=== PATIENT | male | born 1970 ===

== ENCOUNTER 2024-08-14 07:00 | Inpatient (IN) | payer OTHER ==
[~2024-08-14] VITALS: Ht 175.3 cm; Wt 90.7 kg
[~2024-08-14 07:00] MED LIST: AVAPRO75 MG
[2024-08-14] MEDS ORDERED: METFORMIN HCL500 M3 (08:15)
[2024-08-14] MEDS ORDERED: ROSUVASTATIN CA10 MG (08:16)
[2024-08-14] MEDS ORDERED: TOPROL XL50 M1 (08:16)
[2024-08-14] MEDS ORDERED: GLIMEPIRIDE1 M1 (08:16)
[2024-08-14] MEDS ORDERED: METHIMAZOLE 10 MG (08:17)
[2024-08-14] MEDS ORDERED: VITAMIN (08:17)
[2024-08-14] MEDS ORDERED: PROTONIX40 MG (08:18)
[2024-08-14] MEDS ORDERED: IODINE (08:18)
[2024-08-14] MEDS ORDERED: POTASSIUM IODIDE (08:18)
[2024-08-14] MEDS ORDERED: PEPCID 40MG (08:18)
[2024-08-14 08:21] LABS: HEMATOCRIT 38.4 % (39.0-48.0); HEMOGLOBIN 13.1 g/dL (13-16.00); MEAN CELL VOLUME 78.7 fL (80.0-100.00); MEAN CORPUSCULAR HGB CONC 34.3 g/dl (32.0-36.0); PLATELET COUNT 256 K/uL (150-450); RED BLOOD COUNT 4.87 M/uL (4.00-6.00); RED CELL DISTRIBUTION WIDTH 14.5 % (11.5-14.5)
[2024-08-14 08:33] LABS: PH,URINE 5.5 (5.0-8.0); URINE APPEARANCE Clear; URINE BILIRRUBIN Negative (NEGATIVE); URINE BLOOD Negative; URINE COLOR Yellow; URINE GLUCOSE Negative (NEGATIVE); URINE KETONE Negative (NEGATIVE); URINE LEUKOCYTE Negative; URINE NITRATE Negative; URINE PROTEIN Negative (NEGATIVE); URINE UROBILINOGEN 0.2 E.U./dl
[2024-08-14 08:39] LABS: URINE BACTERIA 26.4 uL (0.0-1933)
[2024-08-14 08:51] LABS: INR 1.09; PARTIAL THROMBOPLASTIN TIME 27.2 SECONDS (22.0-34.0); PROTHROMBIN TIME 11.8 SECONDS (9.0-11.5)
[2024-08-14 08:57] LABS: URINE EPITHELIAL CELLS 0.7 uL (0.0-38.8); URINE RBC 1.3 uL (0.0-20.8); URINE WBC 0.7 uL (0.0-23.2)
[2024-08-14 09:39] LABS: BILIRUBIN TOTAL 0.62 mg/dL (0.3-1.2); CALCIUM 9.8 mg/dL (8.5-10.1); CREATININE SERUM 0.9 mg/dL (0.70-1.30); GFR 87.29; GLOBULINA 3.9 G/DL (2.4-3.5); POTASSIUM 4.61 mEq/L (3.5-5.1); TOTAL PROTEIN 7.9 gm/dL (6.4-8.2)
[2024-08-20] MEDS ORDERED: DEXAMETHASONE SODIUM PHOSPHATE 4 MG/ML VIAL IV NR (07:00)
[2024-08-20] MEDS ORDERED: CEFAZOLIN SODIUM 1,000 MG VIAL IV SCH (07:00)
[2024-08-20] MEDS ORDERED: ONDANSETRON HCL 2 MG/ML VIAL IV PRN (10:00)
[2024-08-20] MEDS ORDERED: DEXTROSE 50 % IN WATER 0.5 G/ML DISP.SYRIN IV PRN (10:00)
[2024-08-20] MEDS ORDERED: INSULIN LISPRO 1,000 UNIT/10 ML UNITS SUBCUTANEO PRN (10:00)
[2024-08-20] MEDS ORDERED: ENALAPRILAT DIHYDRATE 1.25 MG/ML VIAL IV PRN (10:00)
[2024-08-20] MEDS ORDERED: MORPHINE SULFATE 4 MG/ML VIAL IV ONE (10:55)
[2024-08-20 16:00] VITALS: BP 127/82; O2SAT 95
[2024-08-20] MEDS ORDERED: TRAMADOL HCL 50 MG TABLET PO SCH (17:00)
[2024-08-20] MEDS ORDERED: ACETAMINOPHEN 500 MG GEL..CAP PO SCH (17:00)
[2024-08-20] MEDS ORDERED: Calcium Carbonate 1 TAB TABLET PO SCH (21:00)
[2024-08-21 01:39] VITALS: BP 129/80; O2SAT 98
[2024-08-21] MEDS ORDERED: LEVOTHYROXINE SODIUM 137 MCG TABLET PO SCH (06:00)
[2024-08-21 08:54] VITALS: BP 137/85; O2SAT 95
[2024-08-21] MEDS ORDERED: CYCLOBENZAPRINE HCL 5 MG TABLET PO SCH (09:00)
[2024-08-21] MEDS ORDERED: FAMOtidine 40 MG TABLET PO SCH (09:00)
[2024-08-21] MEDS ORDERED: METOPROLOL SUCCINATE 50 MG TAB.SR.24H PO SCH ×2 (09:00)
[2024-08-21] MEDS ORDERED: IRBESARTAN 75 MG TABLET PO SCH (09:00)
[2024-08-21] MEDS ORDERED: GLIMEPIRIDE 1 MG TABLET PO SCH (09:00)
[2024-08-21] MEDS ORDERED: PANTOPRAZOLE SODIUM 40 MG TABLET.DR PO SCH (09:00)
== END 2024-08-21 10:13 | disposition home or self-care (01) | DRG 627 ==
LOC: O/R 08-20 05:30 → SURH 08-20 07:00
PROVIDERS: ADMIT Surgery; ATTEND Surgery
PROC: 0GTK0ZZ Resection of Thyroid Gland, Open Approach (ICD-10-PCS; principal; 2024-08-20 07:00)
DX: E05.00 Thyrotoxicosis with diffuse goiter without thyrotoxic crisis or storm (principal); E06.3 Autoimmune thyroiditis; Z20.822 Contact with and (suspected) exposure to COVID-19